=== PATIENT | female | born 1965 | race Caucasian/White ===

== ENCOUNTER → 2016-12-11 | Outpatient (CLI) | payer OTHER | LOC: BMCIMAGING 11:47 | PROVIDERS: ATTEND Podiatrist Foot & Ankle Surgery | DX: M77.31 Calcaneal spur, right foot (principal); M77.32 Calcaneal spur, left foot ==

== ENCOUNTER → 2018-07-28 | Outpatient (CLI) | payer OTHER | LOC: EDSTATUS 12:01 → BMCIMAGING 12:01 | PROVIDERS: ATTEND Internal Medicine Rheumatology | DX: M79.641 Pain in right hand (principal); M79.642 Pain in left hand ==